=== PATIENT | female | born 1955 | race Caucasian/White ===

== ENCOUNTER 2016-09-25 12:28 | Emergency (ER) | payer MEDICAID ==
--- NOTE | 2016-09-25 13:47 | C.PDOC ---
History Of Present Illness 61 y/o female presents to ED with complaints of left shoulder pain for 3 days worse with movement. Patient reports having one similar episode before 2 years ago and given an injection with symptoms resolving. Patient denies falls, injuries, chest pain, sob, cough, fever, rash or any other complaints at this time. Time Seen by Provider: 09/25/16 13:13 Chief Complaint (Nursing): Upper Extremity Problem/Injury History Per: Patient History/Exam Limitations: no limitations Onset/Duration Of Symptoms: Days Current Symptoms Are (Timing): Still Present Exacerbating Factor(s): Movement Past Medical History Reviewed: Historical Data, Nursing Documentation, Vital Signs Vital Signs: Last Vital Signs Temp 97.4 F L 09/25/16 14:08 Pulse 54 L 09/25/16 14:08 Resp 18 09/25/16 14:08 BP 126/72 09/25/16 14:08 Pulse Ox 100 09/25/16 14:08 - Medical History PMH: Diabetes, HTN, Hypercholesterolemia Denies: Chronic Kidney Disease Family History: States: Unknown Family Hx - Social History Hx Tobacco Use: No Hx Alcohol Use: No Hx Substance Use: No - Immunization History Hx Tetanus Toxoid Vaccination: No Hx Influenza Vaccination: No Hx Pneumococcal Vaccination: No Review Of Systems Except As Marked, All Systems Reviewed And Found Negative. Constitutional: Negative for: Fever, Chills Cardiovascular: Negative for: Chest Pain Respiratory: Negative for: Cough, Shortness of Breath Musculoskeletal: Positive for: Shoulder Pain Skin: Negative for: Rash Neurological: Negative for: Weakness, Numbness Physical Exam - Physical Exam Appears: Other (In mild pain) Skin: Normal Color, Warm Head: Atraumatic, Normacephalic Cardiovascular: Rhythm Regular, No Murmur Respiratory: Normal Breath Sounds, No Rales, No Rhonchi, No Wheezing Extremity: Tenderness (Left shoulder tender to palpation at superior aspect), Capillary Refill (<2 seconds), No Deformity, No Swelling, Other (decreased ROM secondary to pain) Pulses: Left Radial: Normal, Right Radial: Normal Neurological/Psych: Oriented x3, Normal Motor, Normal Sensation ED Course And Treatment O2 Sat by Pulse Oximetry: 97 (RA) Pulse Ox Interpretation: Normal - Other Rad left shoulder X-Ray: Viewed By Me, Read By Radiologist Interpretation: Accession No. : [id number]. Patient Name / ID : CHARLY ABARCA / [id number]. Exam Date : 09/25/2016 13:37:32 ( Approved ). Study Comment : Sex / Age : F / [id number]. Creator : Ban Lira MD. Dictator : Ban Lira MD. Senior Instructional Designer : Personnel Analyst : Ban Lira MD. Approver2 : Report Date : 09/25/2016 13:50:08. My Comment : . PROCEDURE: Radiographs of the Left Shoulder. HISTORY: LEFT SHOULDER PAIN. COMPARISON: Left shoulder radiographs performed 12/16/13. FINDINGS: BONES: No acute displaced fracture. The distal clavicle and underlying ribs appear intact. JOINTS: Large coarse calcifications adjacent to the humeral head compatible with calcific tendinitis. No acute dislocation. SOFT TISSUES: Soft tissues appear unremarkable. No evidence of radiopaque foreign body. IMPRESSION: No acute displaced fracture or dislocation evident. If symptoms persist or if there is continued clinical concern, x-ray follow-up in 7-10 days should be considered. Progress Note: Patient given Toradol injection and Flexeril. Left shoulder was put in sling and asked to follow up with Ortho Disposition Counseled Patient/Family Regarding: Studies Performed, Diagnosis, Need For Followup, Rx Given - Disposition Referrals: Natalya Pickard MD [Medical Doctor] - Jamar Piña III, MD [Staff Provider] - [facility] [Outside] Disposition: HOME/ ROUTINE Disposition Time: 13:45 Condition: STABLE Additional Instructions: SEGUIMIENTO CON ORTOPEDIA DENTRO DE 1 SEMANA USE EL MEDICAMENTO DEL DOLOR ARNOLD SEA NECESARIO DEVUELVA A LA ROGE DE EMERGENCIA SI LOS SNTOMAS EMPEORARAN Prescriptions: Cyclobenzaprine [Cyclobenzaprine HCl] 10 mg PO BID PRN #15 tab PRN Reason: Muscle Spasm Naproxen [Naprosyn Tab] 375 mg PO BID PRN #20 tab PRN Reason: pain Instructions: Calcific Tendinitis (ED) Print Language: LUXEMBOURGISH - POA Present On Arrival: None - Clinical Impression Clinical Impression: Calcific tendinitis of left shoulder - Thaddeusibe Statement The provider has reviewed the documentation as recorded by the Thaddeusibsameer K[place] All medical record entries made by the Alla were at my direction and personally dictated by me. I have reviewed the chart and agree that the record accurately reflects my personal performance of the history, physical exam, medical decision making, and the department course for this patient. I have also personally directed, reviewed, and agree with the discharge instructions and disposition.
--- NOTE | 2016-09-25 13:51 | RAD ---
PROCEDURE: Radiographs of the Left Shoulder HISTORY: LEFT SHOULDER PAIN COMPARISON: Left shoulder radiographs performed 12/16/13 FINDINGS: BONES: No acute displaced fracture. The distal clavicle and underlying ribs appear intact. JOINTS: Large coarse calcifications adjacent to the humeral head compatible with calcific tendinitis. No acute dislocation. SOFT TISSUES: Soft tissues appear unremarkable. No evidence of radiopaque foreign body. IMPRESSION: No acute displaced fracture or dislocation evident. If symptoms persist or if there is continued clinical concern, x-ray follow-up in 7-10 days should be considered.
[2016-09-25 14:09] VITALS: BP 126/72; PULSE 54; RESP 18; TEMP 97.4
[2016-09-25 16:31] VITALS: O2SAT 97
== END 2016-09-25 14:10 | disposition home or self-care (01) ==
LOC: C.ER 12:28
DX: M75.32 Calcific tendinitis of left shoulder (principal)
CPT/HCPCS: 73030; 96372; 99284; J1885

== ENCOUNTER 2016-11-04 15:48 | Emergency (ER) | payer MEDICAID ==
[2016-11-04 15:58] VITALS: BP 111/73; PULSE 66; RESP 18; TEMP 98.3; O2SAT 99
--- NOTE | 2016-11-04 17:03 | C.PDOC ---
History Of Present Illness 61-year-old female presents to the ED for evaluation of right shoulder pain that radiates down her right arm since yesterday. Patient admits she experienced similar symptoms a few months ago and was seen in [facility]. During her visit, patient underwent XR which was normal. Patient states she was given an injection and pill which relieved her symptoms, and she was discharged home. Patient wants the shot for her pain. She denies fever, chills, neck pain, chest pain, direct injury/trauma to affected area, extremity numbness/weakness. Time Seen by Provider: 11/04/16 16:12 Chief Complaint (Nursing): Upper Extremity Problem/Injury History Per: Patient History/Exam Limitations: no limitations Onset/Duration Of Symptoms: Hrs Current Symptoms Are (Timing): Still Present Quality: "Pain" Exacerbating Factor(s): Strenuous Use Of Affected Area Additional History Per: Patient Past Medical History Reviewed: Historical Data, Nursing Documentation, Vital Signs Vital Signs: Last Vital Signs Temp 98.3 F 11/04/16 15:57 Pulse 66 11/04/16 15:57 Resp 18 11/04/16 15:57 BP 111/73 11/04/16 15:57 Pulse Ox 99 11/04/16 19:01 - Medical History PMH: Diabetes, HTN, Hypercholesterolemia Surgical History: No Surg Hx Family History: States: Unknown Family Hx - Social History Hx Tobacco Use: No Hx Alcohol Use: No Hx Substance Use: No - Immunization History Hx Tetanus Toxoid Vaccination: No Hx Influenza Vaccination: No Hx Pneumococcal Vaccination: No Review Of Systems Constitutional: Negative for: Fever, Chills Cardiovascular: Negative for: Chest Pain Musculoskeletal: Positive for: Shoulder Pain (right ), Arm Pain (right ). Negative for: Neck Pain Neurological: Negative for: Weakness, Numbness Physical Exam - Physical Exam Appears: Non-toxic, No Acute Distress Skin: Normal Color, Warm, Dry Head: Atraumatic, Normacephalic Eye(s): bilateral: Normal Inspection Oral Mucosa: Moist Neck: Supple Chest: Symmetrical, No Deformity, No Tenderness Cardiovascular: Rhythm Regular, No Murmur Respiratory: Normal Breath Sounds, No Wheezing Extremity: Normal ROM, Tenderness (mild to anterior and lateral aspect of right shoulder ), Capillary Refill (less than 2 seconds ), No Deformity, No Swelling Neurological/Psych: Oriented x3, Normal Speech, Normal Cognition Gait: Steady ED Course And Treatment O2 Sat by Pulse Oximetry: 99 (on RA) Pulse Ox Interpretation: Normal Medical Decision Making Medical Decision Making: Impression: 61 y/o female with right shoulder pain Plan: * Toradol IM * Flexeril PO * reassess and disposition Progress: Patient received Toradol IM and Flexeril PO. Arm sling applied to affected area. On reassessment, patient is resting comfortably, showing no signs of distress, and reports an improvement in her shoulder pain. Patient is stable for discharge and is advised to follow up with her PMD within 2-5 days for further evaluation. Disposition Counseled Patient/Family Regarding: Diagnosis, Need For Followup, Rx Given - Disposition Disposition: HOME/ ROUTINE Disposition Time: 17:02 Condition: STABLE Additional Instructions: Vaya a roe mdico o la clnica en 2-5 carter sin falta, para mas evaluacin. [place] los medicamentos consuelo indicado. Volver a la mariusz de emergencia en cualquier momento si los sntomas persisten o empeoran. Prescriptions: Cyclobenzaprine [Cyclobenzaprine HCl] 10 mg PO TID #21 tab Ibuprofen [Motrin] 600 mg PO Q8 #30 tab Instructions: Shoulder Pain (ED) Forms: H-art (WPP) (Telugu), H-art (WPP) (Rwandan) Print Language: SOUTH KOREAN - POA Present On Arrival: None - Clinical Impression Clinical Impression: Shoulder tendinitis - PA / HOT SHOT / Resident Statement MD/DO has reviewed & agrees with the documentation as recorded. - Scribe Statement The provider has reviewed the documentation as recorded by the Scribe (Barbara Olmos) All medical record entries made by the Scribe were at my direction and personally dictated by me. I have reviewed the chart and agree that the record accurately reflects my personal performance of the history, physical exam, medical decision making, and the department course for this patient. I have also personally directed, reviewed, and agree with the discharge instructions and disposition.
== END 2016-11-04 17:10 | disposition home or self-care (01) ==
LOC: C.ER 15:48
DX: M75.91 Shoulder lesion, unspecified, right shoulder (principal)
CPT/HCPCS: 96372; 99284; J1885

== ENCOUNTER 2017-04-09 14:30 | Emergency (ER) | payer MEDICAID, OTHER ==
[2017-04-09 14:40] VITALS: RESP 18; BMI 36.2
--- NOTE | 2017-04-09 15:25 | C.PDOC ---
History Of Present Illness 61-year-old female presents to the ED for evaluation of right shoulder pain that radiates down her right arm gradually worsen for past few days. Patient admits, similar symptoms in past, was seen in [facility] due to same complaints, last visit was on 11/04/16. Patient states she was given an injection and pill which relieved her symptoms, and she was discharged home. Patient denies known direct trauma or injury, fever, chills, neck pain, chest pain, SOB, dyspna, palpitation, denies deformiy, weakness, sensory or vascular deficits to Right arm. At the time of evaluation, pt is on phone, not in any apparent distress. Time Seen by Provider: 04/09/17 15:11 Chief Complaint (Nursing): Upper Extremity Problem/Injury History Per: Patient History/Exam Limitations: no limitations Onset/Duration Of Symptoms: Days (Few days) Current Symptoms Are (Timing): Still Present Past Medical History Reviewed: Historical Data, Nursing Documentation, Vital Signs Vital Signs: Last Vital Signs Temp 98.6 F 04/09/17 14:39 Pulse 84 04/09/17 14:39 Resp 18 04/09/17 14:39 BP 148/71 04/09/17 14:39 Pulse Ox 100 04/09/17 15:50 - Medical History PMH: Diabetes, HTN, Hypercholesterolemia Family History: States: No Known Family Hx - Social History Hx Tobacco Use: No Hx Alcohol Use: No Hx Substance Use: No - Immunization History Hx Tetanus Toxoid Vaccination: No Hx Influenza Vaccination: No Hx Pneumococcal Vaccination: No Review Of Systems Except As Marked, All Systems Reviewed And Found Negative. Constitutional: Negative for: Fever, Chills Cardiovascular: Negative for: Chest Pain, Palpitations Respiratory: Negative for: Shortness of Breath Musculoskeletal: Positive for: Shoulder Pain (right shoulder), Arm Pain ( radiating pain down the right arm). Negative for: Neck Pain Neurological: Negative for: Weakness, Numbness Physical Exam - Physical Exam Appears: Well, Non-toxic, No Acute Distress Skin: Normal Color, Warm, Dry, No Rash, No Ecchymosis Head: Normacephalic Eye(s): bilateral: PERRL Nose: No Flaring, No Discharge Oral Mucosa: Moist Neck: Trachea Midline, No Midline Cervical Tenderness, No Paracervical Tenderness, No Step Off Deformity, Supple Chest: Symmetrical, No Deformity Cardiovascular: Rhythm Regular Respiratory: No Decreased Breath Sounds, No Accessory Muscle Use, No Stridor, No Wheezing Extremity: Normal ROM (mild discomfort to Right shoulder abduction/extension du eto pain), Tenderness (superior aspect Right shoulder), No Deformity, No Swelling Neurological/Psych: Oriented x3, Normal Speech, Normal Motor, Normal Sensation, Normal Reflexes ED Course And Treatment O2 Sat by Pulse Oximetry: 100 (RA) Pulse Ox Interpretation: Normal () Progress Note: On re-evaluation, pt is afebrile, hemodynamicaly stable. Non- toxic. Ambulatory in Ed with stable gait. neck: Supple, (-) midline tenderness. Lungs: CTA B/L, BS equal B/L. cvs: (+)S1S2, REG. RUE: Exam c/w shoulder tenderness superior aspect, (-) deformity, no neurovascular deficits. neuorlogicaly intact. Pt advised. re.f to F/U with PMD, Ortho in 2-3 days for re-eavl. return if any new changes. Medical Decision Making Medical Decision Making: PLAN: * Prednisone PO * Toradol IM Disposition Counseled Patient/Family Regarding: Diagnosis, Need For Followup, Rx Given - Disposition Referrals: Natalya Pickard MD [Medical Doctor] - Disposition: HOME/ ROUTINE Disposition Time: 16:20 Condition: STABLE Additional Instructions: LIGHT DUTY TO RIGHT SHOULDER TAKE MEDICATION PRESCRIBED FOLLOW UP WITH PMD, ORTHOPEDIST IN 2-3 DAYS FOR RE-EVALUATION. RETURN TO ED IF ANY WORSENING OR NEW CHANGES. Prescriptions: Prednisone [Deltasone] 40 mg PO DAILY #6 tablet traMADol [Ultram] 50 mg PO TID #7 tab Instructions: Calcific Tendinitis (ED) Forms: FilmBreak (Frisian) Print Language: NAMIBIAN - Clinical Impression Clinical Impression: Shoulder tendonitis - PA / MILK BOTTLER / Resident Statement MD/DO has reviewed & agrees with the documentation as recorded. - Scribe Statement The provider has reviewed the documentation as recorded by the Thaddeusibe Trudy Vu All medical record entries made by the Scribe were at my direction and personally dictated by me. I have reviewed the chart and agree that the record accurately reflects my personal performance of the history, physical exam, medical decision making, and the department course for this patient. I have also personally directed, reviewed, and agree with the discharge instructions and disposition.
[2017-04-09 16:43] VITALS: BP 138/76; PULSE 70; TEMP 98.5; O2SAT 99
== END 2017-04-09 16:43 | disposition home or self-care (01) ==
LOC: C.ER 14:30
DX: M75.91 Shoulder lesion, unspecified, right shoulder (principal)
CPT/HCPCS: 96372; 99284; J1885